=== PATIENT | female | born 1985 | race Caucasian/White ===

== ENCOUNTER → 2017-02-02 | Outpatient (CLI) | payer BC ==
[2017-02-02 18:48] LABS: Basophils % (A) 1 %; CH 28.9; CHCM 31.6; Eosinophils # (A) 0.1 k/uL (0-0.7); Eosinophils % (A) 4 %; HCT 38.1 % (34.0-46.0); HDW 2.34; Luc # (Auto) 0.09; Luc % (Auto) 2; Lymphocytes # (A) 1.4 k/uL (1.0-4.8); Lymphocytes % (A) 35 %; MCH 28.9 pg (25.0-35.0); MCHC 31.5 g/dL (31.0-37.0); MCV 91.7 fL (80.0-100.0); Mean Platelet Volume 8.6; Monocytes # (A) 0.3 k/uL (0-1.0); Monocytes % (A) 7 %; Neutrophils % (A) 52 %; RBC 4.15 m/uL (3.80-5.40); RDW 14.7 % (11.5-15.5); WBC 3.9 k/uL (3.8-10.6); WBC (Perox) 4.37
[2017-02-02 19:01] LABS: ALT 31 U/L (9-52); AST 21 U/L (14-36); Alkaline Phosphatase 75 U/L (38-126); Anion Gap 10 mmol/L; Blood Urea Nitrogen 10 mg/dL (7-17); Carbon Dioxide 25 mmol/L (22-30); Chloride 105 mmol/L (98-107); Cholesterol 174 mg/dL (<200); Glucose 89 mg/dL (74-99); HDL Cholesterol 69 mg/dL (40-60); Non-African American GFR(MDRD) >60 (>60 ml/min/1.73 sqM); Sodium 140 mmol/L (137-145); Total Bilirubin 0.4 mg/dL (0.2-1.3); Total Protein 6.6 g/dL (6.3-8.2); Triglycerides 45 mg/dL (<150)
== END ==
LOC: MMGSC 08:49
PROVIDERS: ATTEND Family Medicine
DX: Z00.00 Encounter for general adult medical examination without abnormal findings (principal)
CPT/HCPCS: 36415; 80053; 80061; 84439; 84443; 85025

== ENCOUNTER 2024-01-22 11:00 | Day surgery (SDC) | payer BC ==
[2024-01-18 15:01] VITALS: BMI 39.1
[2024-01-22] MEDS: IV FLUID CONTINUATION 1,000 ML IV ONE (12:06)
[2024-01-22] MEDS: LACTATED RINGERS 1,000 ML IV SCH (12:22)
[2024-01-22 12:23] VITALS: RESP 16; TEMP 98
[2024-01-22] MEDS ORDERED: PROPOFOL 10 MG/ML 20 ML VIAL IV ONE (13:27)
--- NOTE | 2024-01-22 13:45 | P.PCN ---
Date of Procedure: 01/22/24 Procedure(s) Performed: BRIEF HISTORY: Patient is a 38-year-old pleasant white female scheduled for an elective colonoscopy as a part of evaluation change in bowel habits for the last 6 months duration. PROCEDURE PERFORMED: Colonoscopy with snare polypectomy. PREOPERATIVE DIAGNOSIS: Change in bowel habits IV sedation per Anesthesia. PROCEDURE: After informed consent was obtained, the patient, was brought into the endoscopy unit. IV sedation was administered by Anesthesia under continuous monitoring. Digital rectal examination was normal. Initially the Olympus CF-160 flexible video colonoscope was then inserted in the rectum, gradually advanced into the cecum without any difficulty. Careful examination was performed as the scope was gradually being withdrawn. Ileocecal valve and the appendiceal orifice were visualized and appeared normal. Prep was excellent. Mucosa of the cecum,had a 7 mm cecal polyp that was removed by cold snare polypectomy. Rest of the ascending colon, transverse colon, descending colon, sigmoid colon, and rectum appeared normal. Retroflexion was performed in the rectum and no lesions were seen. The patient tolerated the procedure well. IMPRESSION: 7 mm cecal polyp status post cold snare polypectomy Rest of the colon appeared normal RECOMMENDATIONS: Findings of this examination were discussed with the patient as well as a family.she was advised to follow with the biopsy results. If the biopsy results adenoma she can have a repeat colonoscopy in 5 years.
[2024-01-22 14:08] VITALS: BP 108/70; PULSE 70
== END 2024-01-22 14:18 | disposition home or self-care (01) ==
LOC: ORWHC2ENDO 11:00
PROVIDERS: ATTEND Internal Medicine Gastroenterology
DX: D12.0 Benign neoplasm of cecum (principal); Z79.899 Other long term (current) drug therapy
CPT/HCPCS: 81025; 88305; 45385; J2704